=== PATIENT | female | born 1970 | race Caucasian/White ===

== ENCOUNTER 2019-05-13 16:08 | Emergency (ER) | payer OTHER ==
--- NOTE | 2019-05-13 17:12 | CT ---
EXAM: Brain CTWithout contrast: HISTORY: Altered mental status COMPARISON: None FINDINGS: No focal mass or midline shift. No intra or extra-axial hemorrhage. Sinuses and mastoids are clear of acute process. IMPRESSION: No mass or bleed or other significant acute intracranial process.
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
[2019-05-13] MEDS ORDERED: Acetaminophen 500 MG TAB ONE (18:53)
== END 2019-05-13 20:23 | disposition home or self-care (01) ==
LOC: NAV ERS 16:08
DX: S20.311A Abrasion of right front wall of thorax, initial encounter (principal); F10.129 Alcohol abuse with intoxication, unspecified; E11.9 Type 2 diabetes mellitus without complications; E78.5 Hyperlipidemia, unspecified; I10 Essential (primary) hypertension; F32.9 Major depressive disorder, single episode, unspecified; Z79.84 Long term (current) use of oral hypoglycemic drugs; Y04.8XXA Assault by other bodily force, initial encounter
CPT/HCPCS: 70450; 71046; 72040; 72125